=== PATIENT | female | born 1990 | race African-American/Black ===

== ENCOUNTER 2024-06-25 17:21 | Emergency (ER) | payer OTHER, SELFPAY | END 2024-06-25 21:23 | disposition home or self-care (01) | LOC: CSHERS 17:21 | DX: M79.89 Other specified soft tissue disorders (principal); I10 Essential (primary) hypertension; Z86.718 Personal history of other venous thrombosis and embolism; Z79.01 Long term (current) use of anticoagulants | CPT/HCPCS: 93970 ==